=== PATIENT | female | born 1985 | race Two or more races ===

== ENCOUNTER 2017-02-10 08:31 | Emergency (ER) | payer OTHER ==
[~2017-02-10] VITALS: Ht 149.9 cm; Wt 59.0 kg
--- NOTE | 2017-02-10 08:50 | NUR ---
SEEN BY . SAMUEL NOTED. VSS. SAFETY AND COMFORT MEASURES PROVIDED. WILL MONITOR.
--- NOTE | 2017-02-10 09:02 | NUR ---
STORAGE AND BACKUP ADMINISTRATOR AT FOR BLOOD DRAW.
[2017-02-10 09:07] LABS: BASOPHILS % (AUTO) 0.3 % (0.0-2.0); EOSINOPHILS # (AUTO) 0.1 /CMM (0.0-0.7); EOSINOPHILS % (AUTO) 1.1 % (0.0-6.0); HEMATOCRIT 40 % (33-45); HEMOGLOBIN 13.3 g/dL (11.5-14.8); LYMPHOCYTES # (AUTO) 2.4 /CMM (0.8-4.8); LYMPHOCYTES % (AUTO) 25.7 % (20.0-44.0); MEAN CORPUSCULAR HEMOGLOBIN 29 PG (26.0-33.0); MEAN CORPUSCULAR HGB CONC 33 g/dl (31.0-36.0); MEAN CORPUSCULAR VOLUME 88 fL (82-100); MONOCYTES # (AUTO) 0.4 /CMM (0.1-1.30); MONOCYTES % (AUTO) 4.6 % (2.0-12.0); NEUTROPHILS # (AUTO) 6.2 /CMM (1.8-8.9); NEUTROPHILS % (AUTO) 68.3 % (43.0-81.0); PLATELET COUNT (AUTO) 271 /CMM (150-450); RDW COEFFICIENT OF VARIATION 13.5 (11.5-15.0); RED BLOOD CELL COUNT(AUTO) 4.52 MIL/uL (4.0-5.2); WHITE BLOOD COUNT (AUTO) 9.1 K/uL (4.3-11.0)
[2017-02-10] MEDS ORDERED: KETOROLAC TROMETHAMINE INJ 30 MG/ML VIAL ONE (09:09)
[2017-02-10 09:23] LABS: ALBUMIN 3.8 g/dL (3.4-5.0); BILIRUBIN,DIRECT 0.1 mg/dL (0.0-0.2); BILIRUBIN,TOTAL 0.3 mg/dL (0.2-1.0); CALCIUM, SERUM 8.7 mg/dL (8.5-10.1); CREATININE 0.6 mg/dL (0.6-1.3); POTASSIUM 3.9 mmol/L (3.5-5.1); TOTAL PROTEIN, SERUM 7.5 g/dL (6.4-8.2)
[2017-02-10] MEDS ORDERED: KETOROLAC TROMETHAMINE INJ 60 MG/2 ML VIAL IM ONE (09:30)
--- NOTE | 2017-02-10 09:42 | NUR ---
Patient discharged to home in stable condition. Written and verbal after care instructions given. Patient verbalizes understanding of instruction.
[2017-02-10 09:44] VITALS: BP 118/74
== END 2017-02-10 09:45 | disposition home or self-care (01) ==
LOC: ER 08:35
DX: G89.18 Other acute postprocedural pain (principal); R10.13 Epigastric pain; Z90.49 Acquired absence of other specified parts of digestive tract
CPT/HCPCS: 36415; 80048-TC; 80076-TC; 83690-TC; 85025-TC; A4606; J1885; Z7610

== ENCOUNTER 2017-06-19 09:40 | Emergency (ER) | payer OTHER ==
[~2017-06-19] VITALS: Ht 149.9 cm; Wt 59.0 kg
[2017-06-19 09:46] VITALS: BP 106/66
--- NOTE | 2017-06-19 09:52 | NUR ---
Pt c/o sore throat and cough for 3 days, also laryngitis. Pt denies CP, SOB, BERNARD, dizziness, n/v, no other complaints, no distress noted.
--- NOTE | 2017-06-19 09:59 | NUR ---
Gave pt RX and d/c instructions, verbalized understanding.
== END 2017-06-19 20:18 | disposition home or self-care (01) ==
LOC: ER 09:43
DX: J20.9 Acute bronchitis, unspecified (principal); Z90.49 Acquired absence of other specified parts of digestive tract
CPT/HCPCS: A4606; Z7610

== ENCOUNTER 2018-11-20 21:36 | Emergency (ER) | payer OTHER ==
[~2018-11-20] VITALS: Ht 149.9 cm; Wt 59.9 kg
--- NOTE | 2018-11-20 22:05 | NUR ---
BIB SELF FROM [facility] . AAOX4. NAD, BREATHING EVEN AND UNLABORED. AMBULATORY. C/O EPIGASTRIC PAIN X 2 DAYS, SHARP 03/23. REPORT N/V/D. PT HAVE TAKEN PEPTO BISMOL AND IBUPROPHEN. TO ER BED 1.MD AT BEDSIDE FOR EVAL. AWAITING ORDERS
[2018-11-20] MEDS ORDERED: MAG HYDROX/AL HYDROX/SIMETH 30 ML UDC ONE (22:10)
--- NOTE | 2018-11-20 22:16 | NUR ---
TECH AT BEDSIDE FOR EKG
[2018-11-20 22:19] LABS: APPEARANCE,URINE Clear (CLEAR); BILIRUBIN,URINE SMALL (NEGATIVE); BLOOD, URINE Negative Ery/uL (NEGATIVE); COLOR,URINE Yellow (YELLOW); KETONES,URINE Negative (NEGATIVE); LEUKOCYTE ESTERASE ,URINE Negative (NEGATIVE); NITRITE, URINE Negative (NEGATIVE); PH,URINE 5.5 (5.0-8.0); PROTEIN,URINE 100 mg/dl (NEGATIVE); UGLUCOSE Negative (NEGATIVE); UROBILINOGEN,URINE 0.2 EU/dL (0.2)
[2018-11-20] MEDS ORDERED: MAG HYDROX/AL HYDROX/SIMETH 30 ML UDC PO ONE (22:30)
[2018-11-20 22:32] LABS: BASOPHILS % (AUTO) 0.1 % (0.0-2.0); EOSINOPHILS % (AUTO) 0.9 % (0.0-6.0); HEMATOCRIT 41 % (33-45); HEMOGLOBIN 13.4 g/dL (11.5-14.8); LYMPHOCYTES # (AUTO) 2.5 /CMM (0.8-4.8); LYMPHOCYTES % (AUTO) 20.3 % (20.0-44.0); MEAN CORPUSCULAR HGB CONC 33 g/dl (31.0-36.0); MEAN CORPUSCULAR VOLUME 90 fL (82-100); MONOCYTES # (AUTO) 0.7 /CMM (0.1-1.30); MONOCYTES % (AUTO) 5.7 % (2.0-12.0); NEUTROPHILS # (AUTO) 8.9 /CMM (1.8-8.9); PLATELET COUNT (AUTO) 282 /CMM (150-450); RED BLOOD CELL COUNT(AUTO) 4.56 MIL/uL (4.0-5.2); WHITE BLOOD COUNT (AUTO) 12.2 K/uL (4.3-11.0)
[2018-11-20 22:43] LABS: CALCIUM, SERUM 9.1 mg/dL (8.5-10.1); CREATININE 0.7 mg/dL (0.6-1.3); POTASSIUM 3.6 mmol/L (3.5-5.1)
[2018-11-20 22:49] LABS: ALBUMIN 3.7 g/dL (3.4-5.0); BILIRUBIN,DIRECT 0.1 mg/dL (0.0-0.2); BILIRUBIN,TOTAL 0.3 mg/dL (0.2-1.0); TOTAL PROTEIN, SERUM 7.4 g/dL (6.4-8.2)
--- NOTE | 2018-11-20 23:17 | NUR ---
Patient discharged to home in stable condition. Written and verbal after care instructions given. Patient verbalizes understanding of instruction. Pt ambulatory with a steady gait
[2018-11-20 23:18] VITALS: BP 101/68
[2018-11-21 02:24] LABS: BACTERIA,URINE Few /HPF (None Seen); SQUAMOUS EPITHELIAL CELL,UR Moderate /HPF (None Seen)
== END 2018-11-20 23:19 | disposition home or self-care (01) ==
LOC: ER 21:41
DX: K29.00 Acute gastritis without bleeding (principal); Z90.49 Acquired absence of other specified parts of digestive tract; Z98.890 Other specified postprocedural states
CPT/HCPCS: 36415; 80048-TC; 80076-TC; 81000-TC; 83690-TC; 84703-TC; 85025-TC

== ENCOUNTER 2019-04-16 19:58 | Emergency (ER) | payer OTHER ==
[~2019-04-16] VITALS: Ht 149.9 cm; Wt 63.5 kg
--- NOTE | 2019-04-16 20:10 | NUR ---
PT BIBSELF. AAOX4. AMBULATORY. PT C/O HEADACHE X4 DAYS. +DIZZY, -NEURO DEFICIT. PT REPORTS FEELING NAUSEOUS UPON STANDING THIS MORNING. PT ON MONITOR AND PULSE OX. BREATHING EVEN AND UNLABORED. MD AT BEDSIDE FOR KAMALJIT.
[2019-04-16] MEDS ORDERED: KETOROLAC TROMETHAMINE INJ 30 MG/ML VIAL ONE (20:23)
[2019-04-16] MEDS ORDERED: MECLIZINE HCL 25 MG TABLET ONE (20:24)
[2019-04-16] MEDS ORDERED: METOCLOPRAMIDE HCL 10 MG/2 ML VIAL ONE (20:24)
[2019-04-16] MEDS ORDERED: KETOROLAC TROMETHAMINE INJ 30 MG/ML VIAL IV ONE (20:30)
[2019-04-16] MEDS ORDERED: IV NS 0.9% 1,000 ML BAG IV ONE (20:30)
[2019-04-16] MEDS ORDERED: MECLIZINE HCL 12.5 MG TABLET PO ONE (20:30)
[2019-04-16] MEDS ORDERED: METOCLOPRAMIDE HCL 10 MG/2 ML VIAL IV ONE (20:30)
[2019-04-16 21:48] VITALS: BP 112/76
--- NOTE | 2019-04-16 21:48 | NUR ---
Patient discharged to home in stable condition. Written and verbal after care instructions given. Patient verbalizes understanding of instruction. IV removed. Catheter intact and site benign. Pressure and 4x4 applied to site. No bleeding noted. PT ambulatory with a steady gait.
== END 2019-04-16 21:50 | disposition home or self-care (01) ==
LOC: ER 20:04
DX: R51 Headache (principal); R42 Dizziness and giddiness; Z98.890 Other specified postprocedural states; Z90.49 Acquired absence of other specified parts of digestive tract
CPT/HCPCS: 96361; 96374; 96375; 99283; J1885; J2765; J7030; J8597

== ENCOUNTER 2023-12-01 22:15 | Emergency (ER) | payer OTHER ==
[~2023-12-01] VITALS: Ht 152.4 cm; Wt 63.5 kg
[2023-12-01 22:33] VITALS: BP 138/91; TEMP 98
[2023-12-01] MEDS ORDERED: LIDOCAINE 5% (PATCH) 1 EA PATCH TP ONE (23:03)
[2023-12-01] MEDS ORDERED: ACETAMINOPHEN ES 500 MG TABLET ONE (23:04)
[2023-12-01] MEDS ORDERED: IBUPROFEN 600 MG TABLET ONE (23:04)
[2023-12-01] MEDS: LIDOCAINE 5% (PATCH) 1 EA PATCH TP ONE (23:09)
[2023-12-01] MEDS ORDERED: ACET-2605 PO (23:09)
[2023-12-01] MEDS ORDERED: CYCL5TAB PO (23:09)
[2023-12-01] MEDS ORDERED: IBUP-1955 PO (23:09)
[2023-12-01] MEDS: ACETAMINOPHEN ES 500 MG TABLET PO ONE (23:09)
[2023-12-01] MEDS: IBUPROFEN 600 MG TABLET PO ONE (23:09)
[2023-12-01 23:36] VITALS: O2SAT 99
== END 2023-12-01 23:38 | disposition home or self-care (01) ==
LOC: ER 22:18
DX: Z04.1 Encounter for examination and observation following transport accident (principal); Z98.890 Other specified postprocedural states; V89.2XXA Person injured in unspecified motor-vehicle accident, traffic, initial encounter; Y93.89 Activity, other specified; Y92.89 Other specified places as the place of occurrence of the external cause; Y99.8 Other external cause status

== ENCOUNTER 2024-09-06 21:01 | Emergency (ER) | payer OTHER ==
[~2024-09-06] VITALS: Ht 149.9 cm; Wt 59.0 kg
[~2024-09-06 21:01] MED LIST: ACET-2605 PO; CYCL5TAB PO; IBUP-1955 PO
[2024-09-07] MEDS: IV NS 0.9% 1,000 ML BAG IV ONE
[2024-09-07] MEDS: ONDANSETRON HCL/PF 4 MG/2 ML VIAL IVP ONE
[2024-09-07] MEDS ORDERED: ONDANSETRON HCL/PF 4 MG/2 ML VIAL ONE (00:06)
[2024-09-07] MEDS ORDERED: DICYCLOMINE HCL INJ 20 MG/2 ML AMPUL IM ONE (00:06)
[2024-09-07] MEDS: DICYCLOMINE HCL INJ 20 MG/2 ML AMPUL IM ONE (00:16)
[2024-09-07 00:19] LABS: BASOPHILS % (AUTO) 0.6 % (0.0-2.0); EOSINOPHILS # (AUTO) 0.1 K/uL (0.0-0.7); EOSINOPHILS % (AUTO) 1.9 % (0.0-6.0); HEMATOCRIT 42 % (33-45); HEMOGLOBIN 14.1 g/dL (11.5-14.8); MEAN CORPUSCULAR HEMOGLOBIN 29 PG (26.0-33.0); MEAN CORPUSCULAR HGB CONC 34 g/dl (31.0-36.0); MEAN CORPUSCULAR VOLUME 87 fL (82-100); MONOCYTES # (AUTO) 0.8 K/uL (0.1-1.30); MONOCYTES % (AUTO) 12.5 % (2.0-12.0); NEUTROPHILS # (AUTO) 3.1 K/uL (1.8-8.9); PLATELET COUNT (AUTO) 250 K/uL (150-450); RED CELL DISTRIBUTION WIDTH 13.6 % (11.5-15.0)
[2024-09-07 00:34] LABS: CALCIUM, SERUM 8.9 mg/dL (8.5-10.1); CREATININE 0.7 mg/dL (0.6-1.3); POTASSIUM 3.4 mmol/L (3.5-5.1)
[2024-09-07 00:40] LABS: ALBUMIN 3.6 g/dL (3.4-5.0); BILIRUBIN,DIRECT 0.1 mg/dL (0.0-0.2); BILIRUBIN,TOTAL 0.3 mg/dL (0.2-1.0); TOTAL PROTEIN, SERUM 7.5 g/dL (6.4-8.2)
[2024-09-07 00:41] LABS: APPEARANCE,URINE SLIGHTLY CLOUDY (CLEAR); BILIRUBIN,URINE 1+ (NEGATIVE); BLOOD, URINE 3+ Ery/uL (NEGATIVE); COLOR,URINE YELLOW (YELLOW); KETONES,URINE TRACE mg/dL (NEGATIVE); LEUKOCYTE ESTERASE ,URINE TRACE (NEGATIVE); NITRITE, URINE NEGATIVE (NEGATIVE); PROTEIN,URINE 1+ mg/dl (NEGATIVE); UGLUCOSE NEGATIVE (NEGATIVE)
[2024-09-07 00:45] LABS: PREGNANCY TEST URINE QUAL NEGATIVE (NEGATIVE)
[2024-09-07 00:47] LABS: INR 0.97 (0.91-1.10); PROTHROMBIN TIME 10.3 SECS (9.2-11.1)
[2024-09-07] MEDS ORDERED: ONDA4TAB5 PO (00:48)
[2024-09-07 00:50] LABS: BACTERIA,URINE Many /HPF (None Seen); SQUAMOUS EPITHELIAL CELL,UR Many /HPF (None Seen)
[2024-09-07 00:51] LABS: MUCUS,URINE Many /LPF (None Seen)
[2024-09-07 00:53] LABS: ADD URINE CULTURE YES
[2024-09-07 01:25] VITALS: BP 132/96; TEMP 98.3; O2SAT 98
== END 2024-09-07 01:26 | disposition home or self-care (01) ==
LOC: ER 21:02
DX: K52.9 Noninfective gastroenteritis and colitis, unspecified (principal); Z90.49 Acquired absence of other specified parts of digestive tract; Z79.899 Other long term (current) drug therapy
CPT/HCPCS: 99284; 36415; 96374; 96361; 85025; 80048; 87086; 83690; 80076; 84703; 81001; 85730; 96372; J2405; J0500